=== PATIENT | female | born 1960 | race Caucasian/White ===

== ENCOUNTER 2022-11-15 10:05 | Emergency (ER) | payer OTHER ==
[2022-11-15 10:21] LABS: ABG BASE EXCESS 6.2 (-2.0-2.0); ABG HCO3 38.7 MMOL/L (22.0-26.0); ABG O2 SATURATION 98.5 % (95.0-99.0); ABG STANDARD HCO3 30.1 MMOL/L. (22.0-26.0); ABG TOTAL CO2 42.2 MMOL/L (23.0-31.0)
[2022-11-15 10:22] LABS: ABG PARTIAL PRESSURE CO2 113.8 mmHg (35.0-45.0); ABG pH (ARTERIAL) 7.149 UNITS (7.350-7.450)
[2022-11-15] MEDS ORDERED: propofoL 1,000 MG in IV 1 EA IV SCH (10:35)
[2022-11-15] MEDS ORDERED: ETOMIDATE INJ 20MG/10ML VIAL IV ONE (10:35)
[2022-11-15] MEDS ORDERED: SUCCINYLCHOLINE INJ 200MG/10ML VIAL IV ONE ×2 (10:35→11:45)
[2022-11-15 10:44] LABS: BASO % 0.2 % (0.0-1.0); EOS % 0.1 % (0.0-3.0); HEMATOCRIT 41.6 % (36.0-47.0); HEMOGLOBIN 12.2 g/dl (12.0-15.5); LYMPH # 1.4 10^3/uL (1.5-5.0); LYMPH % 11.1 % (24.0-44.0); MEAN CORPUSCULAR HGB CONC 29.3 g/dl (32.0-36.5); MONO # 1.5 10^3/uL (0.0-0.8); MONO % 12.1 % (2.0-8.0); NEUTROPHILS # 9.3 10^3/uL (1.5-8.5); NEUTROPHILS % 76.1 % (36.0-66.0); PLATELET COUNT, AUTOMATED 288 10^3/uL (150-450); RED BLOOD COUNT 3.49 10^6/uL (4.00-5.40); WHITE BLOOD COUNT 12.2 10^3/uL (4.0-10.0)
[2022-11-15 10:46] LABS: MEAN CORPUSCULAR VOLUME 119.2 fl (80.0-96.0)
[2022-11-15 10:59] LABS: INR 0.8; PROTHROMBIN TIME 11.3 SECONDS (12.5-14.5)
[2022-11-15] MEDS ORDERED: MIDAZOLAM INJ 2MG/2ML VIAL As Ordered ONE (11:01)
[2022-11-15 11:02] LABS: D-DIMER QUANT 526.36 ng/ml (<500)
[2022-11-15] MEDS ORDERED: MIDAZOLAM INJ 2MG/2ML VIAL IV STA (11:03)
[2022-11-15 11:06] LABS: PLATELET ESTIMATE NORMAL (NORMAL)
[2022-11-15 11:07] LABS: STOMATOCYTES 2+
[2022-11-15 11:08] LABS: ANISOCYTOSIS 1+
[2022-11-15] MEDS ORDERED: MIDAZOLAM 100MG/100ML-0.9%NACL 100 MG in IV 1 EA IV SCH (11:10)
[2022-11-15 11:11] LABS: ALBUMIN 3.6 G/DL (3.2-5.2); ALKALINE PHOSPHATASE 84 U/L (46-116); ALT/SGPT 17 U/L (7.0-40); AST/SGOT 20 U/L (<34); BILIRUBIN,DIRECT < 0.1 MG/DL (<0.4); BILIRUBIN,TOTAL 0.4 MG/DL (0.3-1.2); BLOOD UREA NITROGEN 21 MG/DL (9-23); CALCIUM LEVEL 9.7 MG/DL (8.3-10.6); CARBON DIOXIDE LEVEL > 40.0 MMOL/L (20-31); CHLORIDE LEVEL 98 MMOL/L (98-107); CK-MB VALUE MASS 2.8 NG/ML (<3.6); CPK CREATINE PHOSPHOKINASE 35 U/L (34-145); CREATININE FOR GFR 0.44 MG/DL (0.55-1.30); GLOMERULAR FILTRATION RATE > 60.0 (>45); GLUCOSE, FASTING 142 MG/DL (74-106); POTASSIUM SERUM 4.2 MMOL/L (3.5-5.1); SODIUM LEVEL 142 MMOL/L (136-145); THYROID STIMULATING HORMONE 1.638 uIU/ML (0.55-4.78)
[2022-11-15] MEDS ORDERED: NOREPINEPHRINE 4MG IN D5 250ML 4 MG in IV 1 EA IV SCH ×2 (11:15)
[2022-11-15] MEDS ORDERED: ROCURONIUM BROMIDE 50MG/5ML VIAL IV ONE (11:50)
[2022-11-15] MEDS ORDERED: NS 1,580 ML in IV 1 EA IV ONE (11:55)
[2022-11-15] MEDS ORDERED: PIPERACILLIN/TAZOBACTAM SOD 4.5 GM in D5W MINI-BAG PLUS 50 ML IV ONE (11:55)
[2022-11-15 12:11] LABS: RSV AMPLIFICATION NEGATIVE (NEGATIVE)
[2022-11-15 12:16] LABS: ETHYL ALCOHOL (ETHANOL) < 0.003 % (0.000-0.010)
[2022-11-15 12:19] LABS: ABG BASE EXCESS 10.7 (-2.0-2.0); ABG HCO3 36.8 MMOL/L (22.0-26.0); ABG PARTIAL PRESSURE CO2 56.2 mmHg (35.0-45.0); ABG PARTIAL PRESSURE O2 218.6 mmHg (75.0-100.0); ABG STANDARD HCO3 34.5 MMOL/L. (22.0-26.0); ABG TOTAL CO2 38.5 MMOL/L (23.0-31.0); ABG pH (ARTERIAL) 7.434 UNITS (7.350-7.450)
[2022-11-15 12:46] LABS: CK-MB VALUE MASS 2.3 NG/ML (<3.6)
[2022-11-15 12:48] LABS: MB/CK RELATIVE INDEX 7.93 (< OR =4)
[2022-11-15] MEDS ORDERED: fentaNYL CITRATE/NaCl 1,000 MCG in IV 1 EA IV SCH ×2 (13:05→13:35)
[2022-11-15] MEDS ORDERED: FENTANYL DRIP LOCK BOX KEY 1 EACH XX PRN (13:05)
[2022-11-15 13:34] LABS: AMPHETAMINES LEVEL URINE NEGATIVE (NEGATIVE); BARBITURATES URINE NEGATIVE (NEGATIVE); COCAINE METABOLITE URINE NEGATIVE (NEGATIVE); METHADONE URINE NEGATIVE (NEGATIVE); OPIATES URINE NEGATIVE (NEGATIVE)
[2022-11-15 13:35] LABS: PHENCYCLIDINE URINE NEGATIVE (NEGATIVE)
[2022-11-15 13:36] LABS: BENZODIAZEPINES URINE POSITIVE (NEGATIVE); CANNABINOIDS URINE POSITIVE (NEGATIVE)
[2022-11-15] MEDS ORDERED: VASEGEL6 TOP (13:48)
[2022-11-15] MEDS ORDERED: BACI500O8 TOP (13:48)
[2022-11-15] MEDS ORDERED: ACET1TAB55 PO (13:48)
[2022-11-15] MEDS ORDERED: SERT50TA29 PO (13:48)
[2022-11-15] MEDS ORDERED: ALBU8.5H INH (13:48)
[2022-11-15] MEDS ORDERED: VITA100093 PO (13:48)
[2022-11-15] MEDS ORDERED: ADV250INH INH (13:48)
[2022-11-15] MEDS ORDERED: PANT40TA29 PO (13:48)
[2022-11-15] MEDS ORDERED: GUAI600T12 PO (13:48)
[2022-11-15] MEDS ORDERED: INCR1INH INH (13:48)
[2022-11-15 13:52] VITALS: BP 115/66
[2022-11-15] MEDS ORDERED: AMLO1TAB24 PO (13:55)
[2022-11-15] MEDS ORDERED: HOME MED LIST COMPLETE! XX SCH (14:00)
== END 2022-11-15 14:06 | disposition short-term general hospital (02) ==
LOC: M ED 10:05 → EDBD 10:05 → M ED 14:06
DX: S02.91XA Unspecified fracture of skull, initial encounter for closed fracture (principal); J96.90 Respiratory failure, unspecified, unspecified whether with hypoxia or hypercapnia; R68.0 Hypothermia, not associated with low environmental temperature; A41.9 Sepsis, unspecified organism; I50.9 Heart failure, unspecified; J44.9 Chronic obstructive pulmonary disease, unspecified; F17.200 Nicotine dependence, unspecified, uncomplicated; Z88.1 Allergy status to other antibiotic agents
CPT/HCPCS: 31500; 36556; 36600; 51702; 70450; 71045; 72125; 80048; 80076; 80307; 81001; 82077; 82550; 82553; 82803; 83605; 83880; 84443; 85025; 85379; 85610; 87040; 87631; 93005; 93041; 94760; 96365; 96366; 96367; 96368; 96375; 96376; 99285; J0330; J2250; J2543; J3010